=== PATIENT | female | born 1960 | race Caucasian/White ===

== ENCOUNTER → 2016-09-24 | Outpatient (CLI) | payer BC ==
--- NOTE | 2016-09-24 17:09 | PCVCIMAG ---
APPROVED REPORT Study performed: 09/24/2016 15:58:46 EXAM: Comprehensive 2D, Doppler, and color-flow Echocardiogram Patient Location: Echo lab Status: routine Other Information Study Quality: Good Indications Dyspnea Fatigue LOWER EXTREMITY EDEMA 2D Dimensions LVEF(%): 23.03 (>50%) IVSd: 10.14 (7-11mm)LVOT Diam: 19.69 (18-24mm) LVDd: 63.38 mm PWd: 12.16 (7-11mm)Ascending Ao: 26.19 (22-36mm) LVDs: 56.52 (25-40mm) Left Atrium: 44.42 (27-40mm) Aortic Root: 23.97 mm LV Single Plane 4CH: 20.63 % LV Single Plane 2CH: 25.83 %Miller's LVEF: 23.23 % Biplane EF: 23.6 % Volumes Left Atrial Volume (Systole) Single Plane 4CH: 79.38 mLSingle Plane 2CH: 74.55 mL LA ESV Index: 36.00 mL/m2 Aortic Valve AoV Peak Jim.: 1.39 m/s AO Peak Gr.: 7.73 mmHgLVOT Max P.09 mmHg LVOT Max V: 0.87 m/s JAILENE Vmax: 1.90 cm2 AI Vmax: 3.00 m/s AI Collier: 2.24 m/s2 AI PHT: 387.91 ms Mitral Valve E/A Ratio: 0.7 MV Decel. Time: 71.38 ms MV E Max Jim.: 0.79 m/s MV A Jim.: 1.10 m/s IVRT: 103.81 ms TDI E/Lateral E': 13.17E/Medial E': 15.80 Medial E' Ijm.: 0.05 m/s Lateral E' Jim.: 0.06 m/s Pulmonary Valve PV Peak Jim.: 1.01 m/sPV Peak Gr.: 4.06 mmHg Pulmonary Vein P Vein S: 0.46 m/sP Vein A: 0.32 m/s P Vein D: 0.57 m/sP Vein A Dur.: 93.4 msec P Vein S/D Ratio: 0.81 Tricuspid Valve TV Vmax: 0.55 m/s Left Ventricle Left ventricle is moderately dilated. There is normal LV segmental wall motion. Mild concentric left ventricular hypertrophy. Left ventricular systolic function is severely decreased globally. LVEF is 20-25%. Mild diastolic dysfunction is present (impaired relaxation pattern) with increased LA pressure. Right Ventricle The right ventricle is normal size. The right ventricular systolic function is normal. Atria Left atrium is moderately dilated. The right atrium size is normal. Aortic Valve Aortic valve is trileaflet. Aortic valve leaflets are mildly sclerotic but open well. Mild aortic regurgitation. There is no aortic valvular stenosis. Mitral Valve The mitral valve is normal in structure. Mild mitral regurgitation. No evidence of mitral valve stenosis. Tricuspid Valve The tricuspid valve is normal in structure. Trace tricuspid regurgitation. Pulmonic Valve The pulmonary valve is normal in structure. There is no pulmonic valvular regurgitation. Great Vessels The aortic root is normal in size. The ascending aorta is normal in size. IVC is normal in size and collapses with >50% inspiration Pericardium There is no pericardial effusion. There is no pleural effusion. <Conclusion> Left ventricle is moderately dilated. Left ventricular systolic function is severely decreased globally. LVEF is 20-25%. Mild diastolic dysfunction is present (impaired relaxation pattern) with increased LA pressure. Left atrium is moderately dilated. The right atrium size is normal. Mild aortic regurgitation. Mild mitral regurgitation. Trace tricuspid regurgitation. There is no pericardial effusion.
== END | disposition home or self-care (01) ==
LOC: PCVCIMAG 15:05
PROVIDERS: ATTEND Internal Medicine Cardiovascular Disease
DX: I08.3 Combined rheumatic disorders of mitral, aortic and tricuspid valves (principal); I10 Essential (primary) hypertension; R94.31 Abnormal electrocardiogram [ECG] [EKG]; I42.9 Cardiomyopathy, unspecified; Z79.899 Other long term (current) drug therapy
CPT/HCPCS: 93005; 93306; G0463

== ENCOUNTER → 2016-09-28 | Outpatient (CLI) | payer BC ==
[~2016-09-28] MED LIST: DIAZEPAM 10 MG TABLET. ONE; FUROSEMIDE 40 MG/4 ML VIAL. ONE; IOHEXOL 350 MG/ML 100 ML VIAL. ONE; IOHEXOL 350 MG/ML 50 ML VIAL. ONE; IV NORMAL SALINE 1000ML BAG 1,000 ML ONE; LIDOCAINE 1% Multi-Dose 20 ML VIAL. ONE; MIDAZOLAM HCL/PF 2 MG/2 ML VIAL. ONE; fentaNYL PF VIAL 100 MCG/2 ML VIAL ONE; hydrALAZINE 20 MG/ML VIAL. ONE
--- NOTE | 2016-09-28 17:59 | PCVCINTER ---
APPROVED REPORT Patient Details Patient Status: Out-Patient Room #: 2 The patient is a 56 year-old Female Event Personnel Yani Muñiz MD, Francisco Cruz RN, Tyrone Baxter RT(R)(), Suresh Llamas RT(R) Risk Factors Arterial HypertensionDysplipidemia (Type: 0)Obesity, Tobacco History (Never) Previous Procedures/Diagnoses Hypertension Procedure Narrative The patient was brought electively to the Cardiac Catheterization Laboratory and was prepped and draped in a sterile manner. The right femoral was infiltrated with 1% Lidocaine subcutaneous anesthesia. A Right Heart Catheterization was performed with a 7 Fr. [place] catheter and pressure were recorded. Cardiac outputs were obtained by the Thermal Dilution method. A 6 fr sheath was inserted into the right femoral artery. Coronary angiography was performed using coronary diagnostic catheters. The right coronary system was accessed and visualized with a JR4 Diagnostic catheter. The left coronary system was accessed and visualized with a JL 4 Diagnostic catheter. The left ventricle was accessed and visualized with a pigtail catheter. Left ventriculogram was performed in SALINAS projection. An aortogram of the abdominal aorta was performed. Pre-demployment femoral angiogram was performed . Closure device was deployed with a 6 Fr Mynx. Hemostasis was obtained with manual pressure following sheath removal without any complications. The patient tolerated the procedure well and there were no complications associated with the procedure. There was no hematoma. Fluoro Time: 3.5 minutes Dose: DAP 6292.4 cGycm2 665 mGy Contrast Type and Amount: omni 350 80ml Hemodynamics The right atrial mean pressure is 15/12 (11) mmHg. The right ventricular pressure is 62/16 (30) mmHg. The pulmonary artery pressure is 60/24 mmHg with a mean of 37 mmHg. The mean pulmonary capillary wedge pressure is 20 -22 mmHg. The aortic pressure is 139/62 mmHg with a mean of 93 mmHg. The left ventricular pressure is 119/7 mmHg with a mean of 12 mmHg. The cardiac output and index were assessed using thermodilution. The cardiac output using thermo method is 6.40 L/min. The cardiac index using thermo method is 3.00 L/min/m2. 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 We will increase the by mouth dose of Lasix to twice a day continue potassium we'll switch to Coreg 25 mg twice a day continue the lisinopril. Daily weights salt and fluid restriction have been extensively discussed. 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 Will consideration adding Aldactone and possibly one of the new heart failure agents. We need further diuresis here. She is down 30 pounds will need to continue this and hope that we have improvement in LV function. We will reevaluate with an echo Doppler in 90 days would give consideration to defibrillator if we don't have improvement in the LV function. This plan and recommendations has been extensively discussed with Linda.
== END | disposition home or self-care (01) ==
LOC: PCVCINTER 09:45
PROVIDERS: ATTEND Internal Medicine Cardiovascular Disease
DX: I25.10 Atherosclerotic heart disease of native coronary artery without angina pectoris (principal); I10 Essential (primary) hypertension; E78.5 Hyperlipidemia, unspecified; E66.9 Obesity, unspecified; Z68.43 Body mass index [BMI] 50.0-59.9, adult
CPT/HCPCS: 75625; 93460; C1751; C1760; C1769; C1894; J0360; J1644; J1940; J2250; J3010; J7030; Q9967

== ENCOUNTER → 2016-12-29 | Outpatient (CLI) | payer BC ==
--- NOTE | 2016-12-29 14:25 | PCVCIMAG ---
APPROVED REPORT Study performed: 12/29/2016 13:02:53 EXAM: Comprehensive 2D, Doppler, and color-flow Echocardiogram Patient Location: Echo lab Status: routine BSA: 2.02 HR: 58 bpmBP: 180/85 mmHg Rhythm: NSR Other Information Study Quality: Adequate 2D Dimensions IVSd: 13.21 (7-11mm)LVOT Diam: 18.97 (18-24mm) LVDd: 54.76 mm PWd: 12.41 (7-11mm)Ascending Ao: 30.97 (22-36mm) LVDs: 33.57 (25-40mm) Left Atrium: 36.54 (27-40mm) Aortic Root: 26.28 mm LV Single Plane 4CH: 44.53 % LV Single Plane 2CH: 52.91 %Miller's LVEF: 48.72 % Biplane EF: 48.8 % Volumes Left Atrial Volume (Systole) Single Plane 4CH: 61.93 mLSingle Plane 2CH: 48.45 mL LA ESV Index: 28.00 mL/m2 Aortic Valve LVOT Max P.61 mmHg LVOT Max V: 0.95 m/s Mitral Valve E/A Ratio: 0.7 MV Decel. Time: 233.01 ms MV E Max Jim.: 0.60 m/s MV A Jim.: 0.83 m/s IVRT: 162.63 ms TDI E/Lateral E': 8.57E/Medial E': 10.00 Medial E' Jim.: 0.06 m/s Lateral E' Jim.: 0.07 m/s Pulmonary Valve PV Peak Gr.: 2.68 mmHg Pulmonary Vein P Vein S: 0.52 m/sP Vein A: 0.32 m/s P Vein D: 0.44 m/sP Vein A Dur.: 107.3 msec P Vein S/D Ratio: 1.18 Left Ventricle The left ventricle is normal size. There is normal LV segmental wall motion. There is normal left ventricular wall thickness. Left ventricular systolic function is normal. The left ventricular ejection fraction is within the normal range. LVEF is 45%. The left ventricular diastolic function is normal. Right Ventricle The right ventricle is normal size. The right ventricular systolic function is normal. Atria The left atrium size is normal. The right atrium size is normal. Aortic Valve The aortic valve is normal in structure. Trace aortic regurgitation. There is no aortic valvular stenosis. Mitral Valve The mitral valve is normal in structure. Trace mitral regurgitation. No evidence of mitral valve stenosis. Tricuspid Valve The tricuspid valve is normal in structure. Trace tricuspid regurgitation. Pulmonic Valve The pulmonary valve is normal in structure. There is no pulmonic valvular regurgitation. Great Vessels The aortic root is normal in size. IVC is normal in size and collapses with >50% inspiration Pericardium There is no pericardial effusion. <Conclusion> The left ventricle is normal size. LVEF is 45%. The left ventricular diastolic function is normal. The right ventricle is normal size. The left atrium size is normal. There is no aortic valvular stenosis. Trace mitral regurgitation. Trace tricuspid regurgitation. There is no pericardial effusion.
== END | disposition home or self-care (01) ==
LOC: PCVCIMAG 13:01
PROVIDERS: ATTEND Internal Medicine Cardiovascular Disease
DX: I11.0 Hypertensive heart disease with heart failure (principal); I50.9 Heart failure, unspecified; I42.9 Cardiomyopathy, unspecified; R60.9 Edema, unspecified; E78.5 Hyperlipidemia, unspecified; Z79.899 Other long term (current) drug therapy; R06.02 Shortness of breath
CPT/HCPCS: 93005; 93306; G0463

== ENCOUNTER → 2018-02-03 | Outpatient (CLI) | payer BC ==
--- NOTE | 2018-02-03 16:38 | PCVCIMAG ---
APPROVED REPORT Study performed: 02/03/2018 13:13:37 EXAM: Comprehensive 2D, Doppler, and color-flow Echocardiogram Patient Location: Echo lab Status: routine BSA: 2.21 HR: 64 bpmBP: 132/80 mmHg Rhythm: NSR Other Information Study Quality: Adequate Risk Factors: Cardiac Risk Factors: HTN, Hyperlipidemia Indications Cardiomyopathy 2D Dimensions IVSd: 14.84 (7-11mm)LVOT Diam: 21.00 (18-24mm) LVDd: 43.67 mm PWd: 12.84 (7-11mm)Ascending Ao: 29.97 (22-36mm) LVDs: 33.26 (25-40mm) Left Atrium: 38.86 (27-40mm) Aortic Root: 29.50 mm LV Single Plane 4CH: 46.55 % LV Single Plane 2CH: 43.76 % Biplane EF: 44.2 % Volumes Left Atrial Volume (Systole) Single Plane 4CH: 68.13 mLSingle Plane 2CH: 33.56 mL LA ESV Index: 22.00 mL/m2 Aortic Valve AoV Peak Jim.: 1.22 m/s AO Peak Gr.: 5.92 mmHgLVOT Max P.41 mmHg LVOT Max V: 0.92 m/s JAILENE Vmax: 2.60 cm2 Mitral Valve E/A Ratio: 0.8 MV Decel. Time: 229.16 ms MV E Max Jim.: 0.59 m/s MV A Jim.: 0.77 m/s IVRT: 62.28 ms TDI E/Lateral E': 8.43E/Medial E': 14.75 Medial E' Jim.: 0.04 m/s Lateral E' Jim.: 0.07 m/s Pulmonary Valve PV Peak Jim.: 0.94 m/sPV Peak Gr.: 3.53 mmHg Pulmonary Vein P Vein S: 0.55 m/sP Vein A: 0.30 m/s P Vein D: 0.40 m/sP Vein A Dur.: 100.3 msec P Vein S/D Ratio: 1.38 Tricuspid Valve TR Peak Jim.: 2.71 m/sRAP Estimate: 7.00 mmHg TR Peak Gr.: 29.48 mmHg PA Pressure: 37.00 mmHg Left Ventricle The left ventricle is normal size. There is normal LV segmental wall motion. Mild to moderate concentric left ventricular hypertrophy. Left ventricular systolic function is mildly decreased. LVEF is 45-50%. Mild diastolic dysfunction is present (impaired relaxation pattern). Right Ventricle The right ventricle is normal size. The right ventricular systolic function is normal. Atria The left atrium size is normal. The right atrium size is normal. Aortic Valve The aortic valve is normal in structure. Trace aortic regurgitation. There is no aortic valvular stenosis. Mitral Valve The mitral valve is normal in structure. Trace mitral regurgitation. No evidence of mitral valve stenosis. Tricuspid Valve The tricuspid valve is normal in structure. Trace tricuspid regurgitation. Pulmonary artery pressure is 37 mmHg. Pulmonic Valve The pulmonary valve is normal in structure. There is no pulmonic valvular regurgitation. Great Vessels The aortic root is normal in size. IVC is normal in size and collapses >50% with inspiration. Pericardium There is no pericardial effusion. <Conclusion> The left ventricle is normal size. Left ventricular systolic function is mildly decreased. LVEF is 45-50%. Mild diastolic dysfunction is present (impaired relaxation pattern). The right ventricle is normal size. The left atrium size is normal. Trace aortic regurgitation. Trace mitral regurgitation. Trace tricuspid regurgitation. Pulmonary artery pressure is 37 mmHg. The aortic root is normal in size. There is no pericardial effusion.
== END | disposition home or self-care (01) ==
LOC: PCVCIMAG 12:44
PROVIDERS: ATTEND Internal Medicine Cardiovascular Disease
DX: I10 Essential (primary) hypertension (principal); E78.5 Hyperlipidemia, unspecified; I42.9 Cardiomyopathy, unspecified
CPT/HCPCS: 93306